=== PATIENT | female | born 1975 | race Two or more races ===

== ENCOUNTER 2023-06-30 14:44 | Inpatient (IN) | payer MEDICAID, OTHER ==
[~2023-06-30] VITALS: Ht 157.5 cm; Wt 78.0 kg
[2023-06-30 15:18] LABS: Basophils # (auto) 0.1 10 ^3/uL (0-0.2); Basophils % (auto) 0.8 % (0.0-2.0); Eosinophils # (auto) 0.1 10 ^3/uL (0-0.8); Eosinophils % (auto) 1.2 % (0.0-7.0); Hematocrit 44.9 % (36.0-46.0); Hemoglobin 14.9 g/dL (12.2-16.2); Lymphocytes # (auto) 2.2 10 ^3/uL (0.4-5.4); Lymphocytes % (auto) 36.3 % (10.0-50.0); Mean Corpuscular Hemoglobin 30.7 pg (28.0-32.0); Mean Corpuscular Hgb Conc. 33.2 g/dL (32.0-36.0); Mean Corpuscular Volume 92.3 fL (80.0-100.0); Monocytes # (auto) 0.5 10 ^3/uL (0-1.3); Monocytes % (auto) 7.8 % (0.0-12.0); Neutrophils # (auto) 3.2 10 ^3/uL (1.6-8.6); Neutrophils % (auto) 53.9 % (37.0-80.0); Nucleated Red Blood Cells % 0.1 %; Red Blood Cells 4.86 10^6/uL (4.0-5.20); Red Cell Distribution Width 13.1 % (11.8-14.3); White Blood Cell 5.9 10^3/uL (4.4-10.8)
[2023-06-30 15:30] LABS: INR 0.97 (0.9-1.15); Partial Thromboplastin Time 28.9 SEC (24.5-34.5); Prothrombin Time 10.3 sec (9.3-11.8)
[2023-06-30 15:36] LABS: Alanine Aminotransferase 31 U/L (7-40); Alkaline Phosphatase 73 U/L (46-116); Anion Gap 2 (5-15); Aspartate Aminotransferase 24 U/L (13-40); BUN/Creatinine Ratio 8.4 (10.0-20.0); Blood Urea Nitrogen 7 mg/dL (9-23); Calcium 9.5 mg/dL (8.7-10.4); Carbon Dioxide 30 mmol/L (20-30); Chloride 104 mmol/L (98-107); Glucose 105 mg/dL (74-106); Magnesium 2.2 mg/dL (1.6-2.6); Potassium 5.4 mmol/L (3.5-5.1); Sodium 136 mmol/L (136-145)
[2023-06-30 15:37] LABS: Albumin 4.4 g/dL (3.2-4.8); Bilirubin, Total 0.5 mg/dL (0.2-1.0); Total Protein 7.1 g/dL (5.7-8.2)
[2023-06-30] MEDS ORDERED: SODIUM CHLORIDE 0.9% 1,000 ML IV ONE (16:15)
[2023-06-30 18:53] VITALS: PULSE 76; RESP 17; O2SAT 97
[2023-06-30] MEDS: CLOPIDOGREL BISULFATE 75 MG TAB PO ONE (19:14)
[2023-06-30] MEDS: ASPirin 81 mg TAB PO ONE (19:14)
[2023-06-30] MEDS: LABETALOL HCL 5 MG/ML 4ML SYRINGE IV ONE (19:14)
[2023-06-30] MEDS: SODIUM CHLORIDE 0.9% 1,000 ML IV SCH (19:14)
[2023-06-30 19:30] VITALS: PULSE 75; RESP 12; O2SAT 98
[2023-06-30 19:38] LABS: Magnesium 2.1 mg/dL (1.6-2.6)
[2023-06-30 19:56] LABS: Phosphorus 4.8 mg/dL (2.4-5.1)
[2023-06-30] MEDS: IOHEXOL 350 MG/ML 100ML IJ ONE (19:57)
[2023-06-30] MEDS: SODIUM ZIRCONIUM CYCL 10 GM PAK PO ONE (20:04)
[2023-06-30] MEDS ORDERED: LORazepam 2MG/ML-1ML VIAL IV PRN (21:15)
[2023-06-30] MEDS: ATORVASTATIN 20 MG TAB PO SCH (22:21)
[2023-06-30] MEDS: METOPROLOL TARTRATE 50 MG TAB PO SCH (22:21)
[2023-07-01] VITALS (7 sets, daily range): BP systolic 124–136; BP diastolic 79–98; PULSE 56–83; RESP 16–20; TEMP 97.3–98.5; O2SAT 94–98
[2023-07-01 04:06] LABS: Urine Bacteria None Seen /hpf (None Seen)
[2023-07-01 04:20] LABS: Urine Blood Negative /uL (Negative); Urine Budding Yeast OCCASIONAL /hpf (None Seen); Urine Clarity Turbid (Clear); Urine Color Yellow (Yellow); Urine Protein, UAD TRACE (Negative); Urine Specific Gravity 1.038 (1.001-1.035); Urine Urobilinogen 2 mg/dL (Negative); Urine WBC 18 /hpf (0 - 5); Urine pH 6.5 (5.0-9.0)
[2023-07-01 04:29] LABS: Amphetamine Screen, Urine Pos (NEGATIVE); Barbiturate Scree,Urine Neg (NEGATIVE); Benzodiazephine Screen, Urine Neg (NEGATIVE); Cannabinoid Screen, Urine Neg (NEGATIVE); Cocaine Screen, Urine Neg (NEGATIVE); Opiate Scree,Urine Neg (NEGATIVE); Phencyclidine Screen, Urine Neg (NEGATIVE)
[2023-07-01 06:21] LABS: LDL Cholesterol 64 mg/dL (< 100); Triglycerides 73 mg/dL (< 150)
[2023-07-01 06:23] LABS: Cholesterol 130 mg/dL (< 200); HDL Cholesterol 55 mg/dL (40-59)
[2023-07-01 09:53] LABS: Basophils # (auto) 0 10 ^3/uL (0-0.2); Basophils % (auto) 0.5 % (0.0-2.0); Eosinophils # (auto) 0.1 10 ^3/uL (0-0.8); Eosinophils % (auto) 1.6 % (0.0-7.0); Hematocrit 42.7 % (36.0-46.0); Lymphocytes # (auto) 1.8 10 ^3/uL (0.4-5.4); Lymphocytes % (auto) 39.1 % (10.0-50.0); Mean Corpuscular Hemoglobin 30.2 pg (28.0-32.0); Mean Corpuscular Hgb Conc. 32.7 g/dL (32.0-36.0); Mean Corpuscular Volume 92.4 fL (80.0-100.0); Monocytes # (auto) 0.4 10 ^3/uL (0-1.3); Monocytes % (auto) 7.7 % (0.0-12.0); Neutrophils # (auto) 2.4 10 ^3/uL (1.6-8.6); Neutrophils % (auto) 51.1 % (37.0-80.0); Nucleated Red Blood Cells % 0.1 %; Red Blood Cells 4.62 10^6/uL (4.0-5.20); Red Cell Distribution Width 13.6 % (11.8-14.3); White Blood Cell 4.7 10^3/uL (4.4-10.8)
[2023-07-01 10:08] LABS: Chloride 107 mmol/L (98-107); Potassium 4.3 mmol/L (3.5-5.1); Sodium 138 mmol/L (136-145)
[2023-07-01 10:09] LABS: Anion Gap 7 (5-15); Calcium 8.7 mg/dL (8.5-10.1); Carbon Dioxide 24 mmol/L (20-30)
[2023-07-01 10:14] LABS: BUN/Creatinine Ratio 9.8 (10.0-20.0); Blood Urea Nitrogen 8 mg/dL (9-23); Glucose 91 mg/dL (74-106)
[2023-07-01] MEDS: CLOPIDOGREL BISULFATE 75 MG TAB PO SCH (10:19)
[2023-07-01] MEDS: ASPirin 81 mg TAB PO SCH (10:19)
[2023-07-01] MEDS: ENOXAPARIN SOD 40 MG/0.4 ML SYRINGE SC SCH (10:19)
[2023-07-01 10:21] LABS: Albumin 3.7 g/dL (3.2-4.8); Bilirubin, Direct 0.1 mg/dL (<0.3); Bilirubin, Total 0.3 mg/dL (0.2-1.0); Total Protein 6.1 g/dL (5.7-8.2)
[2023-07-01] MEDS ORDERED: ASPI-325 PO (14:29)
[2023-07-01] MEDS ORDERED: CLOP75TA70 PO (14:29)
[2023-07-01] MEDS ORDERED: ATOR40TA52 PO (14:29)
[2023-07-01] MEDS ORDERED: NITR-52 PO (14:30)
== END 2023-07-01 19:10 | disposition home or self-care (01) | DRG 47 ==
LOC: ER 14:44 → TELE 18:47 → TELE-WESTW 07-01 03:35
PROVIDERS: ADMIT Internal Medicine; ATTEND Internal Medicine
DX: G45.9 Transient cerebral ischemic attack, unspecified (principal); E87.5 Hyperkalemia; I16.9 Hypertensive crisis, unspecified; F17.200 Nicotine dependence, unspecified, uncomplicated; I10 Essential (primary) hypertension; N39.0 Urinary tract infection, site not specified; J45.909 Unspecified asthma, uncomplicated; G47.10 Hypersomnia, unspecified; Z90.49 Acquired absence of other specified parts of digestive tract; Z88.0 Allergy status to penicillin; Z82.49 Family history of ischemic heart disease and other diseases of the circulatory system; Y92.89 Other specified places as the place of occurrence of the external cause
CPT/HCPCS: 36415; 70450; 70460; 70491; 70551; 71045; 80048; 80053; 80061; 80076; 80307; 81001; 83036; 83735; 83880; 84100; 84443; 84484; 85025; 85610; 85730; 86592; 87081; 92610; 93306; 97163; G0378